=== PATIENT | male | born 1995 | race Caucasian/White ===

== ENCOUNTER 2020-12-05 19:16 | Emergency (ER) | payer BC ==
[~2020-12-05] VITALS: Ht 195.6 cm; Wt 167.8 kg
[2020-12-05 19:47] LABS: HEMOGLOBIN 15.5 gm/dl (14.0-17.5); RED BLOOD COUNT 5.11 M/UL (4.20-5.50); WHITE BLOOD COUNT 4.5 K/UL (4.5-11.0)
[2020-12-05 21:03] LABS: BUN/CREATININE RATIO 16 (0-10)
[2020-12-06] MEDS ORDERED: FLOVENT 110.088 GM/I INH (00:02)
[2020-12-06] MEDS ORDERED: PROAIR DIGIHAL90 MCG INH (00:02)
== END 2020-12-05 23:30 | disposition home or self-care (01) ==
LOC: ER1 19:16
PROVIDERS: Emergency Medicine
DX: U07.1 COVID-19 (principal); I10 Essential (primary) hypertension; E11.9 Type 2 diabetes mellitus without complications; Z86.73 Personal history of transient ischemic attack (TIA), and cerebral infarction without residual deficits
CPT/HCPCS: 71045; 80053; 83605; 84484; 85025; 93005; 99285; M0239

== ENCOUNTER → 2021-02-04 | Outpatient (CLI) | payer BC ==
[~2021-02-04] MED LIST: FLOVENT 110.088 GM/I INH; PROAIR DIGIHAL90 MCG INH
== END ==
LOC: HEART 5 15:15
DX: R00.2 Palpitations (principal)